=== PATIENT | male | born 1955 | race Caucasian/White ===

== ENCOUNTER 2016-07-01 15:52 | Emergency (ER) | payer BC ==
[~2016-07-01] VITALS: Ht 185.4 cm; Wt 97.5 kg
[~2016-07-01 15:52] MED LIST: ANAPROX DS550 MG PO; ASPI-COR81 M1 PO; COREG6.25 MG PO; GLIPIZIDE XL10 MG PO; HYDROCODONE BIT1 T11 PO; INVOKANA PO; KEFLEX500 MG PO; LANTUS100 U/ML SC; LIPITOR80 MG PO; METFORMIN1000 MG PO; PLAVIX75 MG PO; REGLAN5 MG PO; ZANTAC150 MG PO; ZOLOFT100 MG PO
[2016-07-01 16:23] LABS: BASO # 0.1 10*3/uL (0.0-0.1); BASO % 0.6 % (0.0-1.0); EOS # 0.2 10*3/uL (0.0-0.4); EOS % 2.2 % (1.0-4.0); HEMATOCRIT 42.8 % (42.0-52.0); HEMOGLOBIN 14.7 g/dl (14.0-18.0); LYMPH # 2.1 10*3/uL (1.3-4.4); LYMPH % 19.7 % (27.0-41.0); MEAN CELL VOLUME 88.2 fl (80.0-94.0); MEAN CORPUSCULAR HGB 30.3 pg (27.0-31.0); MEAN CORPUSCULAR HGB CONC 34.3 g/dl (33.0-37.0); MEAN PLATELET VOLUME 11.2 fl (9.6-12.3); MONO # 0.9 10*3/uL (0.1-1.0); MONO % 8.1 % (3.0-9.0); NEUT # 7.5 10*3/uL (2.3-7.9); NEUT % 69.1 % (47.0-73.0); PLATELET COUNT AUTOMATED 197 10*3/uL (130-400); RED BLOOD COUNT 4.85 10*6/uL (4.50-5.90); RED CELL DISTRI WIDTH 12.6 % (0-14.5); WHITE BLOOD COUNT 10.8 10*3/uL (4.8-10.8)
[2016-07-01 16:32] LABS: PROTHROMBIN TIME 10.2 SECONDS (9.0-12.4)
[2016-07-01] MEDS ORDERED: GLIPIZIDE XL5 M1 PO (16:35)
[2016-07-01] MEDS ORDERED: NITROGLYCERIN0.4 MG PO (16:36)
[2016-07-01 16:40] LABS: ALBUMIN 4.2 gm/dl (3.1-4.5); ALKALINE PHOSPHATASE 114 U/L (45-117); BILIRUBIN, TOTAL 0.6 mg/dl (0.2-1.0); BUN 15 mg/dl (7-24); CARBON DIOXIDE 26 mmol/L (21-32); CHLORIDE 101 mmol/L (98-107); EST GLOM FILT AFRICAN AMERICAN > 60 ml/min; GLUCOSE 286 mg/dL (65-99); MAGNESIUM 2.2 mg/dL (1.5-2.1); POTASSIUM 4.7 mmol/L (3.5-5.1); SGOT/AST 26 IU/L (3-35); SGPT/ALT 27 U/L (12-78); SODIUM 137 mmol/L (136-145); TOTAL PROTEIN 8.1 gm/dL (6.4-8.2)
== END 2016-07-01 17:35 | disposition short-term general hospital (02) ==
LOC: ED 15:52
PROVIDERS: Emergency Medicine
DX: I21.3 ST elevation (STEMI) myocardial infarction of unspecified site (principal); I47.2 Ventricular tachycardia; Z95.1 Presence of aortocoronary bypass graft; Z79.899 Other long term (current) drug therapy; Z79.82 Long term (current) use of aspirin

== ENCOUNTER → 2016-08-18 | Outpatient (CLI) | payer BC ==
[~2016-08-18] MED LIST changes: +BRILINTA90 M1 PO; +GLIPIZIDE XL10 M1 PO; +ISOSORBIDE MONO30 MG PO; +JARDIANCE10 MG PO; +NITROGLYCERIN0.4 MG PO; +ZESTRIL2.5 MG PO
== END | disposition home or self-care (01) ==
LOC: CARD 03:47
DX: I21.11 ST elevation (STEMI) myocardial infarction involving right coronary artery (principal); R53.81 Other malaise; I08.1 Rheumatic disorders of both mitral and tricuspid valves

== ENCOUNTER → 2016-10-13 | Outpatient (CLI) | payer BC ==
--- NOTE | ~2016-10-13 | HM ---
[place], [place] HOLTER MONITOR REPORT [id number] UNIT #: [id number] ROOM: DOCTOR: CHARLEY MACKEY MD BIRTHDATE: [birth year] DOS: A 24-HOUR HOLTER MONITOR Study was done from October 13 through the and is being interpreted on 10/15/2016. INDICATIONS: Palpitations. FINDINGS: The patient was monitored utilizing a Holter device for 24 hours. The basic rhythm was sinus with an average heart rate of 72. Heart rate varied from 46-126 beats per minute in sinus rhythm. The patient had occasional premature ventricular contractions with 1 couplet. No ventricular tachycardia was seen. The patient had fairly frequent premature atrial contractions with 2 atrial runs. The longest of these was 6 beats in duration and occurred at 2:47 in the afternoon. The atrial runs were supraventricular tachycardias. Maximum heart rate was 143 during SVT. The patient had no prolonged pauses. The patient did complain of lightheadedness while picking things up off the floor. During that time, he was in sinus rhythm with a heart rate of about 90. IMPRESSION: 1. Normal sinus rhythm. 2. Occasional premature ventricular contractions without ventricular tachycardia. 3. Frequent premature atrial contractions with two short runs of supraventricular tachycardia. 4. No prolonged pauses. 5. Symptoms obtained when the patient was in sinus rhythm. CHARLEY MACKEY MD CM:HOLTER:HOLTER MONITOR REPORT [id number] CHARLEY MACKEY MD
== END | disposition home or self-care (01) ==
LOC: CARD 08:41
DX: R00.0 Tachycardia, unspecified (principal); I21.11 ST elevation (STEMI) myocardial infarction involving right coronary artery; I49.3 Ventricular premature depolarization

== ENCOUNTER → 2017-05-25 | Outpatient (CLI) | payer BC | END | disposition home or self-care (01) | LOC: US 06:30 | DX: K76.89 Other specified diseases of liver (principal); R11.0 Nausea ==